=== PATIENT | female | born 1970 | race Caucasian/White ===

== ENCOUNTER → 2016-09-23 | Outpatient (CLI) | payer OTHER ==
[2016-09-23 12:31] VITALS: BP 133/87; PULSE 84; RESP 16; TEMP 98.8; BMI 45.7
--- NOTE | 2016-10-25 22:13 | P.PN ---
Progress Note - Text DATE OF SERVICE: 09/23/2016. CHIEF COMPLAINT: Bariatric assessment. HISTORY OF PRESENT ILLNESS: Doris Browning is a 46-year-old female who is actually going through the bariatric program since September 2014. At her height of 5 feet 2 inches today she comes in weighing 250 pounds. Her highest weight was 257 pounds. She maintained a seven pound weight loss. Her ideal body weight is 135 pounds. She is 150 pounds overweight. Body mass index is reduced from 47.1 down to 45.8. Separately, as a result of her morbid obesity, she developed diabetes type 2 and had been placed on metformin now improved with diet control. She also developed obstructive sleep apnea, including hypertension. Given the moderate weight, she is looking for bariatric options. PAST MEDICAL HISTORY: 1. Gastroesophageal reflux disease. 2. Osteoarthritis of the hips and lower back. 3. Panniculitis. 4. Benign hypertension. 5. Diabetes type 2, [id number]. PAST SURGICAL HISTORY: 1. Laparoscopic endometriosis resection. 2. Right shoulder rotator cuff. 3. D&C x3. 4. Cholecystectomy. 5. Upper endoscopy. MEDICATIONS: 1. Wellbutrin. 2. Prilosec. 3. Nystatin powder. 4. Multivitamin. 5. Vitamin D. ALLERGIES: ACIDIC FOODS. SOCIAL HISTORY: No recent alcohol use; however, she reports moderate tobacco use. She is with a who also smokes. FAMILY HISTORY: Pertinent for morbid obesity. REVIEW OF SYSTEMS: CONSTITUTIONAL: [place] body weight of 135 pounds for her 5 feet, 2 inches frame. Highest weight of 257 pounds. Present weight of 250 pounds. She has lost 7 pounds. Body mass index reduced from 47.1 down to 45.8. She is 115 pounds overweight. GASTROINTESTINAL: Has gastroesophageal reflux disease. No reports of dumping syndrome. ENDOCRINE: History of diabetes, type II, not controlled with diet. No reports of thyroid disorder. RESPIRATORY: Diagnosed with moderate to severe obstructive sleep apnea. CARDIOVASCULAR: She has developed hypertension at least on several visits, which has yet to be treated. MUSCULOSKELETAL: She reports osteoarthritis of the lower back, including of the knees as a result of her weight. HEENT: No troubles with vision or hearing. NEURO: No reports of headaches or seizure disorder. PSYCH: No reports of suicidal ideation. Patient history of depression. HEMATOLOGIC: No family history of DVTs or pulmonary emboli. PHYSICAL EXAM: VITAL SIGNS: 98.8, 84, 16, 133/87, 5 feet 2 inches, 250 pounds. Body mass index 45.8. ABDOMEN: Soft, nondistended. Mild tenderness along the epigastrium and has diastasis recti. GENERAL: Well-developed female in no acute distress. CARDIOVASCULAR: Regular rate and rhythm. HEENT: No sclerae icterus. Extraocular movements grossly intact. Moist buccal mucosa. NECK: Supple without lymphadenopathy. CHEST: Unlabored respirations with equal bilateral excursions. MUSCULOSKELETAL: No clubbing, cyanosis. Bilateral lower extremity edema of 1+. NEURO: No focal or lateralizing signs. PSYCH: Appropriate affect. Alert and oriented to person, place and time. LABS: Previous bariatric metabolic panel at an outside institution demonstrates vitamin D deficiency. Hemoglobin within normal limits. ASSESSMENT: 1. Morbid obesity due to exogenous caloric intake. 2. Body mass index reduced from 47.1 down to 45.8. 3. Dietary surveillance and counseling. 4. Diabetes type 2, [id number]. 5. Moderate to severe obstructive sleep apnea. 6. Osteoarthritis of the lower back due to morbid obesity. 7. Osteoarthritis of the bilateral hips due to morbid obesity. 8. Osteoarthritis of bilateral knees due to morbid obesity. 9. Hypertension without diastolic dysfunction. 10. Obstructive sleep apnea. 11. History of epigastric abdominal pain. 12. History of tobacco use. PLAN: 1. Per discussion with the requirements of her bariatric program, she will need to continue with her weight loss journal. 2. She will also need to undergo medical supervised weight loss. She has already completed at least 4 months. 3. Recommend bariatric dietitian classes. 4. Psych assessment per insurance guidelines. 5. Medical risk assessment per insurance guidelines. 6. Bariatric procedures between the band, sleeve, Nataly-en-Y gastric bypass were reviewed. She is looking into gastrectomy-type procedures. Risks of leaks were also described and reviewed. 7. Recommended follow-up at least with her primary care provider or the bariatric clinic regarding medical supervised weight loss.
== END | disposition home or self-care (01) ==
LOC: BARWHC3 10:07
PROVIDERS: ATTEND Surgery Plastic and Reconstructive Surgery
DX: Z01.818 Encounter for other preprocedural examination (principal); E66.01 Morbid (severe) obesity due to excess calories; Z68.42 Body mass index [BMI] 45.0-49.9, adult; E11.9 Type 2 diabetes mellitus without complications; I10 Essential (primary) hypertension; G47.33 Obstructive sleep apnea (adult) (pediatric); R10.13 Epigastric pain; F17.200 Nicotine dependence, unspecified, uncomplicated; Z79.899 Other long term (current) drug therapy
CPT/HCPCS: 99211

== ENCOUNTER → 2017-06-23 | Outpatient (CLI) | payer OTHER ==
[2017-06-23 11:21] VITALS: BP 121/83; PULSE 106; RESP 20; TEMP 98.5; BMI 46.7
[2017-06-23 13:07] LABS: HCT 45.3 % (34.0-46.0); HGB 14.6 gm/dL (11.4-16.0); MCH 28.3 pg (25.0-35.0); MCHC 32.3 g/dL (31.0-37.0); MCV 87.7 fL (80.0-100.0); Mean Platelet Volume 7.7; Platelet Count 268 k/uL (150-450); RBC 5.17 m/uL (3.80-5.40); RDW 15.6 % (11.5-15.5); WBC 8.4 k/uL (3.8-10.6)
[2017-06-23 13:14] LABS: ALT 102 U/L (9-52); AST 69 U/L (14-36); Albumin 4.2 g/dL (3.5-5.0); Alkaline Phosphatase 103 U/L (38-126); Anion Gap 11 mmol/L; Blood Urea Nitrogen 10 mg/dL (7-17); Calcium 9.9 mg/dL (8.4-10.2); Carbon Dioxide 31 mmol/L (22-30); Chloride 101 mmol/L (98-107); Cholesterol 185 mg/dL (<200); Glucose 88 mg/dL (74-99); HDL Cholesterol 36 mg/dL (40-60); LDL Cholesterol,Calculated 110 mg/dL (0-99); Potassium 5.2 mmol/L (3.5-5.1); Sodium 143 mmol/L (137-145); Total Bilirubin 0.7 mg/dL (0.2-1.3); Total Protein 7.6 g/dL (6.3-8.2); Triglycerides 194 mg/dL (<150)
[2017-06-23 18:59] LABS: Iron Saturation 18.25 (12.00-45.00)
[2017-06-23 21:02] LABS: Hemoglobin A1C 6.1 % (4.0-6.0)
--- NOTE | 2017-08-13 19:55 | P.PN ---
Subjective Progress Note Date: 06/23/17 DATE OF SERVICE: 06/23/2017. CHIEF COMPLAINT: Bariatric assessment. HISTORY OF PRESENT ILLNESS: Doris Browning is a 47-year-old female who is has been going to the bariatric program since September 2014. At her height of 5 feet 1.5 inches today she comes in weighing 251 pounds. Her highest weight was 257 pounds. She maintained a 6 pound weight loss. Her last visit was 1 year ago 2016. Her ideal body weight is 131 pounds. She is 120 pounds overweight. Body mass index is reduced from 47.9 down to 46.8. As a result for morbid obesity, she has developed sleep apnea including hypertension and prediabetes. She has been undergoing 1 year of medical supervised weight loss. PAST MEDICAL HISTORY: 1. Gastroesophageal reflux disease. 2. Osteoarthritis of the hips and lower back. 3. Panniculitis. 4. Benign hypertension. 5. Diabetes type 2, [id number]. PAST SURGICAL HISTORY: 1. Laparoscopic endometriosis resection. 2. Right shoulder rotator cuff. 3. D&C x3. 4. Cholecystectomy. 5. Upper endoscopy. MEDICATIONS: 1. Wellbutrin. 2. Prilosec. 3. Nystatin powder. 4. Multivitamin. 5. Vitamin D. ALLERGIES: ACIDIC FOODS. SOCIAL HISTORY: No recent alcohol use; however, she reports moderate tobacco use. She is with a who also smokes. FAMILY HISTORY: Pertinent for morbid obesity. REVIEW OF SYSTEMS: CONSTITUTIONAL: [place] body weight of 135 pounds for her 5 feet 1.5 inches frame. Highest weight of 257 pounds. Present weight of 251 pounds. She has lost 6 pounds. Body mass index reduced from 47.9 down to 46.8. She is 120 pounds overweight. GASTROINTESTINAL: Has gastroesophageal reflux disease. No reports of dumping syndrome. ENDOCRINE: History of diabetes, type II, controlled with diet. No reports of thyroid disorder. RESPIRATORY: Diagnosed with moderate to severe obstructive sleep apnea. CARDIOVASCULAR: She has developed hypertension. No recent heart attack or chest pain. MUSCULOSKELETAL: She reports osteoarthritis of the lower back, including of the knees as a result of her weight. HEENT: No troubles with vision or hearing. NEURO: No reports of headaches or seizure disorder. PSYCH: No reports of suicidal ideation. Patient history of depression. HEMATOLOGIC: No family history of DVTs or pulmonary emboli. PHYSICAL EXAM: VITAL SIGNS: 5 feet 1.5 inches, 251 pounds. Body mass index 46.8. Vital Signs Temp 98.5 F 06/23/17 10:57 Pulse 106 H 06/23/17 10:57 Resp 20 06/23/17 10:57 BP 121/83 06/23/17 10:57 Pulse Ox ABDOMEN: Soft, nondistended. GENERAL: Well-developed female in no acute distress. CARDIOVASCULAR: Tachycardic, 2+ radial pulses HEENT: No sclerae icterus. Extraocular movements grossly intact. Moist buccal mucosa. NECK: Supple without lymphadenopathy. CHEST: Unlabored respirations with equal bilateral excursions. MUSCULOSKELETAL: No clubbing, cyanosis. NEURO: No focal or lateralizing signs. Cranial nerves II through XII grossly intact. PSYCH: Appropriate affect. Alert and oriented to person, place and time. SKIN: Well perfused. Skin turgor. ASSESSMENT: 1. Morbid obesity due to exogenous caloric intake. 2. Body mass index reduced from 47.9 down to 46.8. 3. Dietary surveillance and counseling. 4. Diabetes type 2, [id number]. 5. Moderate to severe obstructive sleep apnea. 6. Osteoarthritis of the lower back due to morbid obesity. 7. Osteoarthritis of the bilateral hips due to morbid obesity. 8. Osteoarthritis of bilateral knees due to morbid obesity. 9. Hypertension without diastolic dysfunction. 10. Obstructive sleep apnea. 11. History of epigastric abdominal pain. 12. History of tobacco use. 13. Tachycardia. PLAN: 1. She has gone through 12 pounds medical supervised weight loss. Total weight loss is 6 pounds. 2. Recommend 12-lead EKG for tachycardia. 3. Recommend bariatric metabolic panel. 4. Bariatric options were reviewed which she is evaluating for gastric bypass. 5. Will obtain repeat psychological assessment. 6. Recommend strict tobacco cessation including urine nicotine test. Objective - Vital Signs Vital signs: Vital Signs Temp 98.5 F 06/23/17 10:57 Pulse 106 H 06/23/17 10:57 Resp 20 06/23/17 10:57 BP 121/83 06/23/17 10:57 Pulse Ox Intake & Output 06/22/17 06/23/17 06/23/17 18:59 06:59 18:59 Weight 114.215 kg - Labs CBC & Chem 7: 06/23/17 12:19 06/23/17 12:19
== END | disposition home or self-care (01) ==
LOC: BARWHC3 10:06
PROVIDERS: ATTEND Surgery Plastic and Reconstructive Surgery
DX: Z48.815 Encounter for surgical aftercare following surgery on the digestive system (principal); E66.01 Morbid (severe) obesity due to excess calories; E11.9 Type 2 diabetes mellitus without complications; G47.33 Obstructive sleep apnea (adult) (pediatric); M47.816 Spondylosis without myelopathy or radiculopathy, lumbar region; M16.0 Bilateral primary osteoarthritis of hip; M17.0 Bilateral primary osteoarthritis of knee; R00.0 Tachycardia, unspecified; K21.9 Gastro-esophageal reflux disease without esophagitis; E88.81 Metabolic syndrome and other insulin resistance; E55.9 Vitamin D deficiency, unspecified; I11.9 Hypertensive heart disease without heart failure; Z68.42 Body mass index [BMI] 45.0-49.9, adult; Z71.3 Dietary counseling and surveillance; Z87.891 Personal history of nicotine dependence; Z91.018 Allergy to other foods; Z79.899 Other long term (current) drug therapy
CPT/HCPCS: 84425; 80061; 80053; 82607; 82728; 82746; 83540; 83550; 84443; 85027; 82306; 83036; 93005; 36415; G0463; 99211